=== PATIENT | female | born 1960 | race Caucasian/White ===

== ENCOUNTER 2018-01-21 11:22 | Emergency (ER) | payer BC ==
[~2018-01-21] VITALS: Ht 152.4 cm; Wt 68.0 kg
[2018-01-21 11:22] VITALS: BP_SYST 125
[~2018-01-21 11:22] MED LIST: ALPR0.25 PO
[2018-01-21] MEDS ORDERED: KETOROLAC TROMETHAMINE 15 MG VIAL IVP ONE (12:00)
[2018-01-21 13:08] VITALS: BP_SYST 125
== END 2018-01-21 13:08 | disposition home or self-care (01) ==
LOC: SED 11:22
DX: M54.5 Low back pain (principal); E78.00 Pure hypercholesterolemia, unspecified; F41.9 Anxiety disorder, unspecified; R03.0 Elevated blood-pressure reading, without diagnosis of hypertension; Z90.49 Acquired absence of other specified parts of digestive tract
CPT/HCPCS: 72100; 96372; 99284; J1885